=== PATIENT | female | born 1990 | race Caucasian/White ===

== ENCOUNTER 2018-06-17 14:35 | Inpatient (IN) | payer BC ==
[~2018-06-17] VITALS: Ht 152.4 cm; Wt 90.9 kg
[2018-06-17] MEDS ORDERED: FENTANYL PF 100 MCG/2ML IV PRN (15:30)
[2018-06-17] MEDS ORDERED: D5%-LACTATED RINGERS 1,000 ML IV SCH (15:30)
[2018-06-17] MEDS ORDERED: OXYTOCIN 30U/ 0.9% NaCL 500ML 500 ML IV ONE (15:30)
[2018-06-17 15:58] LABS: BASOPHILS # (AUTO) 0.05 x10^3/uL (0-0.1); BASOPHILS % (AUTO) 0 % (0-1); EOSINOPHILS # (AUTO) 0.12 x10^3/uL (0-0.4); EOSINOPHILS % (AUTO) 1 % (1-7); LYMPHOCYTES # (AUTO) 2.05 x10^3/uL (1-3.4); LYMPHOCYTES % (AUTO) 19 % (22-44); MD NO; MEAN CORPUSCULAR HEMOGLOBIN 30.5 pg (27.0-34.8); MEAN CORPUSCULAR HGB CONC 34.2 g/dL (32.4-35.8); MEAN CORPUSCULAR VOLUME 89.2 fL (80-100); MEAN PLATELET VOLUME 8.7 fL (7.4-10.4); MONOCYTES # (AUTO) 0.75 x10^3/uL (0.2-0.8); MONOCYTES % (AUTO) 7 % (2-9); NEUTROPHILS # (AUTO) 7.95 x10^3/uL (1.8-6.8); NEUTROPHILS % (AUTO) 73 % (42-75); PLATELET COUNT 253 x10^3/uL (130-400); RED BLOOD COUNT 4.19 x10^6/uL (3.82-5.3); RED CELL DISTRIBUTION WIDTH 13.8 % (9.6-15.2)
[2018-06-17] MEDS ORDERED: NEWBORN KIT ONE (16:11)
[2018-06-17] MEDS ORDERED: OXYTOCIN 30U/ 0.9% NaCL 500ML 500 ML IV PRN (17:37)
[2018-06-17] MEDS ORDERED: OXYTOCIN 30U/ 0.9% NaCL 500ML 500 ML ONE (17:39)
[2018-06-17 19:56] VITALS: BP 113/77
[2018-06-17] MEDS ORDERED: FENTANYL PF 100 MCG/2ML ONE (21:58)
[2018-06-17] MEDS: FENTANYL PF 100 MCG/2ML IVPush PRN (22:00)
[2018-06-17] MEDS ORDERED: BUPIVACAINE 0.25% ONE (22:39)
[2018-06-17] MEDS ORDERED: FENTANYL/BUPIV./NS/PF 250 ML EPIDCONT ONE ×2 (22:39→22:50)
[2018-06-17] MEDS ORDERED: LIDOCAINE/PF 1.5%-EPI 1:200K, 30ML ONE (22:50)
[2018-06-17] MEDS ORDERED: FENTANYL/BUPIV./NS/PF 250 ML EPIDCONT SCH (23:08)
[2018-06-17] MEDS ORDERED: LACTATED RINGERS 1,000 ML IV SCH (23:08)
[2018-06-17] MEDS ORDERED: LACTATED RINGERS 1,000 ML IVBOLUS PRN (23:30)
[2018-06-18] MEDS: LACTATED RINGERS 1,000 ML IV SCH ×3 (00:20→22:50)
[2018-06-18] MEDS ORDERED: ONDANSETRON 2MG/ML, 2ML ONE (01:00)
[2018-06-18] MEDS ORDERED: ONDANSETRON 2MG/ML, 2ML IVPush PRN (01:05)
[2018-06-18] MEDS ORDERED: LIDOCAINE/PF 1%, 30ML ONE (02:25)
[2018-06-18] MEDS ORDERED: MISOPROSTOL 200 MCG TABLET ONE (02:25)
[2018-06-18 08:15] VITALS: BP 100/58
[2018-06-18] MEDS ORDERED: LACTATED RINGERS 1,000 ML INTUTE SCH (13:30)
[2018-06-18] MEDS ORDERED: LACTATED RINGERS 1,000 ML INTUTE PRN (13:30)
[2018-06-18] MEDS ORDERED: SODIUM CITRATE/CITRIC ACID 30 ML UDC ONE (17:25)
[2018-06-18] MEDS ORDERED: METOCLOPRAMIDE 5 MG/ML, 2ML ONE (17:26)
[2018-06-18] MEDS ORDERED: FENTANYL/BUPIV./NS/PF 250 ML EPIDCONT SCH (18:29)
[2018-06-18] MEDS ORDERED: FENTANYL PF 500 MCG, BUPIVACAINE/PF 0.5%, 30ML 62.5 ML in SODIUM CHLORIDE 0.9% 177.5 ML EPIDCONT SCH (19:00)
[2018-06-18] MEDS ORDERED: FENTANYL PF 100 MCG/2ML ONE (19:27)
[2018-06-18] MEDS: FENTANYL PF 100 MCG/2ML IVPush PRN (19:31)
[2018-06-18] MEDS ORDERED: CEFAZOLIN 1,000 MG ONE (19:38)
[2018-06-18] MEDS ORDERED: KETOROLAC 30 MG/1 ML ONE (19:38)
[2018-06-18] MEDS ORDERED: FENTANYL/BUPIV./NS/PF 250 ML EPIDCONT ONE (19:38)
[2018-06-18] MEDS ORDERED: LIDOCAINE 2%-EPI 1:100K, 20ML ONE (19:38)
[2018-06-18] MEDS ORDERED: LIDOCAINE-MPF 2% ,5ML ONE (20:21)
[2018-06-18] MEDS ORDERED: MEPERIDINE/PF 50 MG/ML ONE (20:21)
[2018-06-18] MEDS ORDERED: FENTANYL PF 100 MCG/2ML IV PRN (21:00)
[2018-06-18] MEDS ORDERED: ONDANSETRON 2MG/ML, 2ML IV PRN (21:00)
[2018-06-18] MEDS ORDERED: MEPERIDINE/PF 25MG/0.5ML IVPush PRN (21:00)
[2018-06-18] MEDS ORDERED: OXYcodone 5 MG/5 ML ORAL.SOL UDC PO PRN (21:00)
[2018-06-18] MEDS ORDERED: HYDROmorphone 1 MG/ML, 1ML IV PRN (21:00)
[2018-06-18] MEDS ORDERED: OXYTOCIN 30U/ 0.9% NaCL 500ML 500 ML ONE (21:18)
[2018-06-18] MEDS ORDERED: HYDROmorphone 2 MG/ML, 1ML ONE (21:18)
[2018-06-18] MEDS ORDERED: OXYcodone 5 MG/5 ML ORAL.SOL UDC ONE (21:42)
[2018-06-18] MEDS ORDERED: MEPERIDINE/PF 100 MG/ML ONE (21:42)
[2018-06-18 22:45] VITALS: BP 110/73
[2018-06-18] MEDS ORDERED: LACTATED RINGERS 1,000 ML IV SCH (22:50)
[2018-06-18] MEDS: OXYTOCIN 30U/ 0.9% NaCL 500ML 500 ML IV SCH (22:50)
[2018-06-18] MEDS ORDERED: OXYcodone/APAP 5/325MG TABLET PO PRN (23:00)
[2018-06-18] MEDS ORDERED: morphine SULFATE 10 MG/ML, 1ML IVPush PRN (23:00)
[2018-06-18] MEDS ORDERED: CALCIUM CARBONATE 500 MG TAB.CHEW PO PRN (23:00)
[2018-06-18] MEDS ORDERED: KETOROLAC 30 MG/1 ML IV PRN (23:00)
[2018-06-19 00:35] VITALS: BP 100/63
[2018-06-19] MEDS: OXYcodone/APAP 5/325MG TABLET PO PRN ×2 (01:44→05:48)
[2018-06-19] MEDS: KETOROLAC 30 MG/1 ML IV SCH ×4 (02:12→20:20)
[2018-06-19 05:00] VITALS: BP 106/71
[2018-06-19] MEDS: LACTATED RINGERS 1,000 ML IV SCH ×2 (05:48→18:50)
[2018-06-19 05:55] LABS: MEAN CORPUSCULAR HEMOGLOBIN 30.9 pg (27.0-34.8); MEAN CORPUSCULAR HGB CONC 34.7 g/dL (32.4-35.8); MEAN CORPUSCULAR VOLUME 89.2 fL (80-100); MEAN PLATELET VOLUME 8.9 fL (7.4-10.4); PLATELET COUNT 189 x10^3/uL (130-400); RED BLOOD COUNT 3.29 x10^6/uL (3.82-5.3); RED CELL DISTRIBUTION WIDTH 14.4 % (9.6-15.2)
[2018-06-19 06:10] LABS: MD YES
[2018-06-19 06:13] LABS: BAND#(MANUAL) 2.96 x10^3/uL; BANDS%(MANUAL) 11 % (0-7); LYMPH#(MANUAL) 1.35 x10^3/uL (1-3.4); LYMPHS% (MANUAL) 5 % (22-44); MONOS#(MANUAL) 1.61 x10^3/uL (0.3-2.7); MONOS% (MANUAL) 6 % (2-9); SEG#(MANUAL) 20.98 x10^3/uL (1.8-6.8); SEGS% (MANUAL) 78 % (42-75)
[2018-06-19 06:17] LABS: <PLATELET ESTIMATE> ADEQUATE; <PLT MORPHOLOGY> NORMAL PLT MORPH; <RBC MORPHOLOGY> NORMAL
[2018-06-19 07:40] VITALS: BP 107/71
[2018-06-19] MEDS: DOCUSATE 100 MG CAPSULE PO PRN ×2 (08:18→20:49)
[2018-06-19] MEDS: PRENATAL VIT/IRON/FA 1 EACH TABLET PO SCH (08:18)
[2018-06-19] MEDS: OXYTOCIN 30U/ 0.9% NaCL 500ML 500 ML IV SCH ×2 (08:50→18:50)
[2018-06-19] MEDS: OXYcodone IR 5MG TABLET PO PRN ×3 (10:10→20:18)
[2018-06-19 12:08] VITALS: BP 111/74
[2018-06-19 16:00] VITALS: BP 106/72
[2018-06-19 20:00] VITALS: BP 107/83
[2018-06-20] VITALS: BP 116/76
[2018-06-20] MEDS: OXYcodone IR 5MG TABLET PO PRN ×6 (00:14→22:13)
[2018-06-20] MEDS: KETOROLAC 30 MG/1 ML IV SCH ×4 (02:20→20:00)
[2018-06-20] MEDS: OXYTOCIN 30U/ 0.9% NaCL 500ML 500 ML IV SCH ×2 (04:50→14:50)
[2018-06-20] MEDS: LACTATED RINGERS 1,000 ML IV SCH ×2 (04:50→14:50)
[2018-06-20 07:53] VITALS: BP 117/85
[2018-06-20] MEDS: PRENATAL VIT/IRON/FA 1 EACH TABLET PO SCH (08:32)
[2018-06-20 20:00] VITALS: BP 125/78
[2018-06-20] MEDS: IBUPROFEN 600 MG TABLET PO PRN (22:13)
[2018-06-20] MEDS: DOCUSATE 100 MG CAPSULE PO PRN (22:13)
[2018-06-21] MEDS: LACTATED RINGERS 1,000 ML IV SCH (00:50)
[2018-06-21] MEDS: OXYTOCIN 30U/ 0.9% NaCL 500ML 500 ML IV SCH (00:50)
[2018-06-21] MEDS: OXYcodone IR 5MG TABLET PO PRN ×3 (02:16→12:09)
[2018-06-21 04:24] VITALS: BP 107/7
[2018-06-21] MEDS: IBUPROFEN 600 MG TABLET PO PRN ×2 (04:36→11:21)
[2018-06-21 08:08] VITALS: BP 120/62
[2018-06-21] MEDS: PRENATAL VIT/IRON/FA 1 EACH TABLET PO SCH (09:18)
[2018-06-21] MEDS: DOCUSATE 100 MG CAPSULE PO PRN (09:18)
[2018-06-21] MEDS ORDERED: IBUP-1222 PO (10:57)
[2018-06-21] MEDS ORDERED: OXYC-302 PO (10:57)
== END 2018-06-21 12:30 | disposition home or self-care (01) | DRG 766 ==
LOC: LDOP 14:35 → LDIP 15:46 → 2NW 06-18 22:27
PROVIDERS: ADMIT Obstetrics & Gynecology; ATTEND Obstetrics & Gynecology
PROC: 10D00Z1 Extraction of Products of Conception, Low, Open Approach (ICD-10-PCS; principal; 2018-06-18)
DX: O34.211 Maternal care for low transverse scar from previous cesarean delivery (principal); O99.334 Smoking (tobacco) complicating childbirth; Z37.0 Single live birth; F17.210 Nicotine dependence, cigarettes, uncomplicated; Z3A.39 39 weeks gestation of pregnancy; J45.909 Unspecified asthma, uncomplicated; O42.02 Full-term premature rupture of membranes, onset of labor within 24 hours of rupture; O62.2 Other uterine inertia; O76 Abnormality in fetal heart rate and rhythm complicating labor and delivery; O99.52 Diseases of the respiratory system complicating childbirth; F32.9 Major depressive disorder, single episode, unspecified; O99.344 Other mental disorders complicating childbirth
CPT/HCPCS: 36415; 87806; J7121; 82803; 84112; 85025; 86592; 86762; 86850; 86900; 87340; J0690; J1170; J1885; J2175; J2405; J3010; J3490; G0475; J2270; J2590; J7120